=== PATIENT | female | born 1950 | race Caucasian/White ===

== ENCOUNTER → 2024-10-08 | Outpatient (CLI) | payer MEDICARE, BC, SELFPAY ==
[2024-10-08 09:01] LABS: Glucose Estimated Average 134 mg/dL (80-131); Hemoglobin A1C 6.3 % Hgb (4.8-6.0)
[2024-10-08 09:29] LABS: Alanine Aminotransferase 16 U/L (10-49); Albumin, Serum 4.4 gm/dL (3.4-4.8); Alkaline Phosphatase 81 U/L (46-116); Anion Gap 7 (7-16); Aspartate Amino Transferase 17 U/L (0-34); BUN/Creatinine Ratio 31 Ratio (12-20); Bilirubin,Total 0.5 mg/dL (0.3-1.2); Blood Urea Nitrogen 25 mg/dL (9-23); Calcium 10.3 mg/dL (8.3-10.6); Calcium (Corrected) 10.3 mg/dL (8.5-10.1); Carbon Dioxide 32.1 mMol/L (20.0-31.0); Chloride 104 mMol/L (98-107); Creatinine (Component) 0.8 mg/dL (0.6-1.3); Globulin 2.2 gm/dL (2.3-3.5); Glucose 121 mg/dL (74-106); Osmolality,Calculated 290 (275-295); Potassium 4.7 mMol/L (3.4-5.1); Sodium 143 mMol/L (136-145); Total Protein 6.6 gm/dL (5.7-8.2); eGFR > 60 See Note
== END | disposition home or self-care (01) ==
LOC: COPL 07:14
PROVIDERS: PCP Family Medicine; Referring Provider Family Medicine; Visit Provider Family Medicine
DX: E11.22 Type 2 diabetes mellitus with diabetic chronic kidney disease (principal); N18.1 Chronic kidney disease, stage 1
CPT/HCPCS: 36415; 80053; 83036

== ENCOUNTER → 2025-01-06 | Outpatient (CLI) | payer MEDICARE, BC, SELFPAY ==
--- NOTE | 2025-01-06 | XR_ITS ---
Examination: Abdomen AP single view Technique: AP portable supine abdomen, single view Exam date and time: January 06, 2025 1254 hours INDICATIONS: Abdominal distention today. FINDINGS: Moderate to large amounts of stool throughout the colon No obstruction No free air Prominent osteopenia. Moderate narrowing hip joints IMPRESSION: Moderate to large amounts of stool throughout the colon
--- NOTE | 2025-01-06 | XR_ITS ---
Examination: Abdomen sonogram, complete Date and time of exam: January 06, 2025 1207 hours INDICATIONS: Abdominal pain beginning one week ago, clinical diagnosis diverticulitis. Technique: Multiple real-time grayscale transabdominal sonographic images of the abdomen have been obtained. Findings: Normal gallbladder Normal common bile duct 0.3 cm Pancreatic head 2.1 cm Aorta not enlarged. Liver 17.3 cm fatty infiltration Normal hepatopedal portal venous flow Patent IVC Right kidney 8.9 cm cortex 1.4 cm Left kidney 10.2 cm cortex 1.5 cm 14 mm midpole left renal cyst Mild left renal and right renal parenchymal scar formation Spleen 7.8 cm IMPRESSION: Normal gallbladder Mild hepatomegaly fatty infiltration
[2025-01-06 14:23] LABS: Basophils # (Auto) 0.1 Thou/mm3 (0.0-0.2); Basophils % (Auto) 1 % (0-2.5); Eosinophils # (Auto) 0.3 Thou/mm3 (0.0-0.5); Eosinophils % (Auto) 3 % (0-10); Hematocrit 44.8 % (36.0-46.0); Hemoglobin 14.8 g/dL (12.0-16.0); Immature Granulocytes % (Auto) 0 % (0-0); Immature Granulocytes Auto 0.04 Thou/mm3 (0.00-0.00); Lymphocytes # (Auto) 2.7 Thou/mm3 (1.0-4.8); Lymphocytes % (Auto) 26 % (10-50); Mean Corpuscular Hemoglobin 30.5 pg (25.0-35.0); Mean Corpuscular Volume 92 fL (80-100); Monocytes # (Auto) 0.9 Thou/mm3 (0.0-0.8); Monocytes % (Auto) 9 % (0-12); Neutrophils # (Auto) 6.4 Thou/mm3 (1.8-7.7); Neutrophils % (Auto) 62 % (37-80); Nucleated Red Blood Cell % 0 /100 WBC (0); Platelet Count 252 Thou/mm3 (140-440); RDW Standard Deviation 44.1 fL (36.4-46.3); Red Blood Count 4.85 Miln/mm3 (4.00-5.20); White Blood Count 10.4 Thou/mm3 (3.6-11.0)
[2025-01-06 14:45] LABS: Alanine Aminotransferase 18 U/L (10-49); Albumin, Serum 4.8 gm/dL (3.4-4.8); Albumin/Globulin Ratio 1.9 (1.2-2.2); Alkaline Phosphatase 69 U/L (46-116); Anion Gap 9 (7-16); Aspartate Amino Transferase 21 U/L (0-34); BUN/Creatinine Ratio 28 Ratio (12-20); Bilirubin,Total 0.6 mg/dL (0.3-1.2); Blood Urea Nitrogen 25 mg/dL (9-23); Calcium 10.4 mg/dL (8.3-10.6); Calcium (Corrected) 10.4 mg/dL (8.5-10.1); Carbon Dioxide 29.8 mMol/L (20.0-31.0); Chloride 103 mMol/L (98-107); Creatinine (Component) 0.9 mg/dL (0.6-1.3); Globulin 2.5 gm/dL (2.3-3.5); Glucose 106 mg/dL (74-106); Osmolality,Calculated 287 (275-295); Potassium 4.4 mMol/L (3.4-5.1); Sodium 142 mMol/L (136-145); Total Protein 7.3 gm/dL (5.7-8.2); eGFR > 60 See Note
== END | disposition home or self-care (01) ==
PROVIDERS: PCP Family Medicine; Referring Provider Family Medicine; Visit Provider Family Medicine
DX: K59.00 Constipation, unspecified (principal); K76.0 Fatty (change of) liver, not elsewhere classified; R10.33 Periumbilical pain; R14.0 Abdominal distension (gaseous)
CPT/HCPCS: 36415; 74018; 76700; 80053; 85025

== ENCOUNTER → 2025-01-14 | Outpatient (CLI) | payer MEDICARE, BC, SELFPAY ==
--- NOTE | 2025-01-14 13:15 | XR_ITS ---
Examination: Screening digital mammography, bilateral Computer aided detection 3-D breast Tomosynthesis, bilateral Date and time of exam: January 14, 2025 1303 hours Compared to mammograms dating to March 25, 2023 Indication: Screening Technique: Nonmagnified MLO, CC views of the breasts to been obtained, reconstructed from 3-D Tomosynthesis images. R2 computer aided detection program utilized for evaluation of suspicious masses and/or abnormal calcifications. 3-D Tomosynthesis images obtained. Findings: Scattered areas of fibroglandular density Stable focal asymmetric glandular tissue outer right breast No interval suspicious masses Impression: BI-RADS category II: Benign Findings. Recommend 1 year follow-up mammogram.
== END | disposition home or self-care (01) ==
LOC: CDIM 12:55
PROVIDERS: Referring Provider Family Medicine; Visit Provider Family Medicine
DX: Z12.31 Encounter for screening mammogram for malignant neoplasm of breast (principal); R92.323 Mammographic fibroglandular density, bilateral breasts
CPT/HCPCS: 77063; 77067

== ENCOUNTER → 2025-02-08 | Outpatient (CLI) | payer MEDICARE, BC, SELFPAY ==
[2025-02-08 14:54] LABS: Collection Type, Urine Clean Catch
[2025-02-08 16:52] LABS: Bacteria,Urine Rare; Bilirubin,Urine Negative (Negative); Blood,Urine Negative (Negative); Color,Urine Lt-Yellow (Lt Yel-Yel); Glucose, Urine Negative (Negative); Ketones,Urine Negative (Negative); Leukocyte Esterase,Urine Positive (Negative); Nitrite,Urine Positive (Negative); Protein,Urine Negative (Neg - Trace); RBC,Urine 8 /hpf (0-3); Squamous Epithelial Cell,Urine < 1 /hpf (0-5); Urobilinogen,Urine Negative mg/dL (0.0-1.0); WBC,Urine 65 /hpf (0-5)
[2025-02-08 17:07] LABS: Clarity,Urine Hazy (Clear/Hazy)
== END | disposition home or self-care (01) ==
LOC: SLDO 14:37
PROVIDERS: Referring Provider Registered Nurse; Visit Provider Registered Nurse
DX: N39.0 Urinary tract infection, site not specified (principal)
CPT/HCPCS: 81001; 87077; 87086; 87186

== ENCOUNTER → 2025-03-21 | Outpatient (CLI) | payer MEDICARE, BC, SELFPAY ==
[2025-03-21 14:34] LABS: Collection Type, Urine Clean Catch
[2025-03-21 16:11] LABS: Bacteria,Urine Rare; Bilirubin,Urine Negative (Negative); Blood,Urine 2+ (Negative); Calcium Oxalate Crystals,Urine 2+; Clarity,Urine Turbid (Clear/Hazy); Color,Urine Yellow (Lt Yel-Yel); Glucose, Urine Trace (Negative); Ketones,Urine Negative (Negative); Leukocyte Esterase,Urine Positive (Negative); Nitrite,Urine Positive (Negative); PH,Urine 6.0 (5.0-7.0); Protein,Urine Trace (Neg - Trace); RBC,Urine 17 /hpf (0-3); Specific Gravity,Urine 1.030 (1.001-1.035); Squamous Epithelial Cell,Urine 1 /hpf (0-5); Transitional Epi Cells,Urine 1 /hpf (0-5); Urobilinogen,Urine Negative mg/dL (0.0-1.0); WBC,Urine 247 /hpf (0-5)
== END | disposition home or self-care (01) ==
LOC: SLDO 14:30
PROVIDERS: PCP Family Medicine; Referring Provider Registered Nurse; Visit Provider Registered Nurse
DX: N39.0 Urinary tract infection, site not specified (principal)
CPT/HCPCS: 81001; 87077; 87086; 87186

== ENCOUNTER 2025-03-28 06:33 | Day surgery (SDC) | payer MEDICARE, BC, SELFPAY ==
--- NOTE | 2025-03-25 09:31 | EKG_ITS ---
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
[2025-03-25 12:01] LABS: Basophils # (Auto) 0.1 Thou/mm3 (0.0-0.2); Basophils % (Auto) 1 % (0-2.5); Eosinophils # (Auto) 0.1 Thou/mm3 (0.0-0.5); Eosinophils % (Auto) 1 % (0-10); Hematocrit 45.6 % (36.0-46.0); Hemoglobin 14.5 g/dL (12.0-16.0); Immature Granulocytes Auto 0.04 Thou/mm3 (0.00-0.00); Lymphocytes # (Auto) 2.3 Thou/mm3 (1.0-4.8); Lymphocytes % (Auto) 24 % (10-50); Mean Corpuscular HGB Conc 31.8 g/dl (31.0-37.0); Mean Corpuscular Hemoglobin 30.6 pg (25.0-35.0); Mean Corpuscular Volume 96 fL (80-100); Monocytes # (Auto) 0.9 Thou/mm3 (0.0-0.8); Monocytes % (Auto) 10 % (0-12); Neutrophils # (Auto) 6.2 Thou/mm3 (1.8-7.7); Neutrophils % (Auto) 64 % (37-80); Nucleated Red Blood Cell # 0.00 Thou/mm3 (0.00-0.00); Nucleated Red Blood Cell % 0 /100 WBC (0); Platelet Count 249 Thou/mm3 (140-440); RDW Standard Deviation 46.6 fL (36.4-46.3); Red Blood Count 4.74 Miln/mm3 (4.00-5.20); White Blood Count 9.7 Thou/mm3 (3.6-11.0)
[2025-03-25 12:31] LABS: Anion Gap 14 (7-16); BUN/Creatinine Ratio 21 Ratio (12-20); Blood Urea Nitrogen 21 mg/dL (9-23); Calcium 10.3 mg/dL (8.3-10.6); Carbon Dioxide 27.3 mMol/L (20.0-31.0); Chloride 103 mMol/L (98-107); Creatinine (Component) 1.0 mg/dL (0.6-1.3); Glucose 154 mg/dL (74-106); Osmolality,Calculated 292 (275-295); Potassium 5.0 mMol/L (3.4-5.1); Sodium 144 mMol/L (136-145); eGFR 58 See Note
[2025-03-25 12:58] LABS: INR 1.0 (0.9-1.3); Partial Thromboplastin Time 24.5 Seconds (22.0-36.0); Prothrombin Time 11.3 Seconds (9.0-12.2)
[2025-03-28] VITALS (10 sets, daily range): BP systolic 100–153; BP diastolic 58–89; PULSE 56–87; RESP 16–21; TEMP 36.2–36.3; O2SAT 93–98; BMI 27.3
--- NOTE | 2025-03-28 09:29 | ESOP_ITS ---
RE: ADY HOLDER : 1950 DATE OF OPERATION: 03/28/2025 DATE OF PROCEDURE: 03/28/2025 PROCEDURES PERFORMED: 1. Diagnostic left heart cardiac catheterization, selective coronary angiogram, and left ventricular angiogram, CPT 85085. 2. Conscious sedation for 30-minute duration. 3. Ultrasound-guided access, right radial artery. DIAGNOSES: Abnormal stress test, coronary artery disease, angina pectoris. HISTORY AND INDICATIONS: The patient is a 75-year-old lady with a history of hypertension who has been having recurrent shortness of breath with chest pressure. Cardiac stress test was inconclusive with suspicion for left main disease because of balanced ischemia. Coronary angiography was recommended to assess if the patient has significant obstructive CAD as the cause of her symptoms. DESCRIPTION OF PROCEDURE: The patient was brought to the cardiac catheterization laboratory where she was given 2 mg Versed and 100 mcg of fentanyl for conscious sedation. The right radial artery approach was taken. Right radial artery was cannulated by micropuncture technique. A 6-[place] Glidesheath was introduced. Selective left coronary angiogram was performed by TIG-4 diagnostic catheter. Left heart catheterization and LV angiogram were performed by the same catheter. The right coronary artery had a low origin, difficult to cannulate. An FR4 diagnostic catheter was used to perform the right coronary angiogram successfully. A TR band was applied. Hemostasis was secured. Radial cocktail was given after the sheath was introduced. The coronary angiogram showed the following findings: The right coronary artery is a large and dominant, showed no significant stenosis. The PDA and PL branches are normal. Left coronary system: The left main coronary artery is normal. The left anterior descending artery is normal. The circumflex artery is normal and nondominant. Left ventricular pressure is 115/10 mmHg. Aortic pressure is 115/80 mmHg. No gradient across the aortic valve. The left ventricular angiogram showed normal left ventricular wall motion with an ejection fraction 60%. SUMMARY OF FINDINGS AND SUGGESTIONS: 1. Normal left ventricular function. 2. Nonobstructive epicardial coronary arteries. RECOMMENDATIONS: The patient was reassured by the absence of significant obstructive coronary artery disease. PROGNOSIS: Excellent. DT: 08:43:05 TT: 09:23:00 Ref: [id number] - TID: [id number] [facility]
== END 2025-03-28 11:40 | disposition home or self-care (01) ==
PROVIDERS: PCP Family Medicine; Referring Provider Internal Medicine Cardiovascular Disease; Visit Provider Internal Medicine Cardiovascular Disease
PROC: (CPT 93458; principal; 2025-03-28 07:30)
DX: I25.119 Atherosclerotic heart disease of native coronary artery with unspecified angina pectoris (principal); I10 Essential (primary) hypertension; Z01.810 Encounter for preprocedural cardiovascular examination
CPT/HCPCS: 93458; 36415; 80048; 85025; 85610; 85730; 87493; 93005; 99152; 99153; A4649; C1769; C1887; C1894; J0168; J0461; J1643; J2250; J2310; J2371; J3010; J3490; Q9967; C1725; J2305

== ENCOUNTER → 2025-03-31 | Outpatient (CLI) | payer MEDICARE, BC, SELFPAY ==
[2025-03-31 15:15] LABS: Collection Type, Urine Clean Catch
[2025-03-31 16:32] LABS: Bacteria,Urine Rare; Bilirubin,Urine Negative (Negative); Blood,Urine 2+ (Negative); Clarity,Urine Clear (Clear/Hazy); Color,Urine Lt-Yellow (Lt Yel-Yel); Glucose, Urine Negative (Negative); Ketones,Urine Negative (Negative); Leukocyte Esterase,Urine Positive (Negative); Nitrite,Urine Negative (Negative); PH,Urine 6.0 (5.0-7.0); Protein,Urine Negative (Neg - Trace); RBC,Urine 116 /hpf (0-3); Specific Gravity,Urine 1.016 (1.001-1.035); Squamous Epithelial Cell,Urine 2 /hpf (0-5); Urobilinogen,Urine Negative mg/dL (0.0-1.0); WBC,Urine 5 /hpf (0-5)
== END | disposition home or self-care (01) ==
LOC: SLDO 14:44
PROVIDERS: PCP Registered Nurse; Referring Provider Registered Nurse; Visit Provider Registered Nurse
DX: N39.0 Urinary tract infection, site not specified (principal)
CPT/HCPCS: 81001; 87086

== ENCOUNTER → 2025-06-06 | Outpatient (CLI) | payer MEDICARE, BC, SELFPAY ==
--- NOTE | 2025-06-06 15:11 | XR_ITS ---
Examination:Right hip AP, lateral, AP pelvis 3 views Technique: Hip AP lateral, AP pelvis, 3 views Exam date and time:June 06, 2025, 1514 hours INDICATIONS: Right back pain radiating to right hip 11 days FINDINGS: Significant osteopenia No right hip fracture or dislocation Moderate narrowing hip joints Left hip bones of the pelvis intact IMPRESSION: Moderate narrowing hip joints.
--- NOTE | 2025-06-06 15:11 | XR_ITS ---
Examination: Lumbar spine, 5 views Technique: Lumbar spine AP, lateral, coned lateral lower lumbar spine, bilateral obliques 5 views Exam date and time: June 06, 2025, 1526 hours, comparison June 24, 2022 INDICATIONS: Low back pain radiating to the right hip beginning 11 days ago. FINDINGS: Severe osteopenia Lumbar dextroscoliosis 17 degrees Advanced diffuse facet arthropathy Grade 1 anterolisthesis L4 on L5 Diffuse moderate to advanced lumbar degenerative disc disease, most severe L2-L3, L5-S1 No lumbar fracture Prominent lumbar spondylosis IMPRESSION: Diffuse moderate to advanced lumbar degenerative disc disease with significant spinal stenosis
== END | disposition home or self-care (01) ==
LOC: CDIM 15:05
PROVIDERS: Referring Provider Family Medicine; Visit Provider Family Medicine
DX: M25.851 Other specified joint disorders, right hip (principal); M51.360 Other intervertebral disc degeneration, lumbar region with discogenic back pain only; M48.061 Spinal stenosis, lumbar region without neurogenic claudication
CPT/HCPCS: 72110; 73502

== ENCOUNTER → 2025-06-08 | Outpatient (CLI) | payer MEDICARE, BC, SELFPAY ==
--- NOTE | 2025-06-08 11:30 | XR_ITS ---
Examination: Abdomen sonogram, Limited Date and time of exam: June 08, 2025 1129 hours INDICATIONS: Epigastric pain 3 years Technique: Real-time gustafson scale transabdominal sonographic images of the upper abdomen obtained. Findings: Normal gallbladder. Normal common bile duct 0.5 cm Pancreatic head 1.4 cm Liver 16.8 cm fatty infiltration no focal liver lesions Normal hepatopedal portal venous flow Patent IVC IMPRESSION: Normal gallbladder Normal common bile duct. Mild hepatomegaly fatty infiltration no focal liver lesions
== END | disposition home or self-care (01) ==
LOC: CDIM 11:07
PROVIDERS: PCP Family Medicine; Referring Provider Specialist; Visit Provider Specialist
DX: K76.0 Fatty (change of) liver, not elsewhere classified (principal)
CPT/HCPCS: 76705

== ENCOUNTER → 2025-06-16 | Outpatient (CLI) | payer MEDICARE, BC, SELFPAY ==
--- NOTE | 2025-06-16 07:00 | XR_ITS ---
Examination: MRI lumbar spine without contrast Date and time of exam: June 16, 2025, 1903 hours INDICATIONS: Lower back pain radiating down the right leg 6 months Technique: Multiple MRI axial and sagittal sections lumbar spine. Sagittal T2-weighted images, TR 3500, TE 118 T1 weighted transverse sections, TR 688 T8.5, T2-weighted sagittal sections T1 weighted sagittal sections TR 621, TE 30 T2 axial sections, TR 4, 190, TE 84. Findings: Grade 1 anterolisthesis L4 on L5 Advanced disc narrowing L1-2, L2-L3, L5-S1 Diffuse lumbar disc desiccation L5-S1 5 mm central lumbar disc bulge contiguous with the right and left S1 nerve roots L4-L5 moderate overall spinal stenosis secondary to the anterolisthesis, 6 mm central lumbar disc bulge, facet arthropathy, the disc bulge extending to the foraminal regions with mild bilateral L4 ganglionic compression L3-L4 4 mm central lumbar disc bulge 6 mm left foraminal disc bulge with mild left L3 ganglionic impression L2-L3 foraminal disc bulges no ganglionic impression L1-L2 4 mm left paracentral disc protrusion IMPRESSION: Advanced degenerative disc disease L1-L2, L2-L3, L5-S1 L5-S1 5 mm central lumbar disc bulge displacing the right and left S1 nerve roots L4-L5 moderate overall spinal stenosis, including mild bilateral L4 ganglionic impression L3-L4 4 mm central lumbar disc bulge 6 mm left foraminal disc bulge with mild left L3 ganglionic compression L1-L2 4 mm left paracentral disc bulge
== END | disposition home or self-care (01) ==
LOC: SMRI 06:35
PROVIDERS: Referring Provider Physician Assistant; Visit Provider Physician Assistant
DX: M51.360 Other intervertebral disc degeneration, lumbar region with discogenic back pain only (principal); G95.20 Unspecified cord compression
CPT/HCPCS: 72148

== ENCOUNTER 2025-06-29 08:20 | Day surgery (SDC) | payer MEDICARE, BC, SELFPAY ==
[2025-06-29] VITALS (8 sets, daily range): BP systolic 139–174; BP diastolic 72–88; PULSE 75–90; RESP 14–18; TEMP 36.7–36.8; O2SAT 14–98; BMI 27.1
[2025-06-29] MEDS: SODIUM CHLORIDE 0.9% 500 ML 500 ML 20 ML IV (10:02)
[2025-06-29] MEDS: BENZOCAINE 20% (Hurricaine) SPRAY 1 DOSE TOP (10:02)
[2025-06-29] MEDS: MIDAZOLAM INJ 1 MG/ML VIAL 2 ML 2 MG IVP (10:05)
[2025-06-29] MEDS: fentaNYL CIT INJ 50 mCg/ML AMP 2ML IVP (10:05)
== END 2025-06-29 11:00 | disposition home or self-care (01) ==
PROVIDERS: PCP Family Medicine; Referring Provider Specialist; Visit Provider Specialist
PROC: (CPT 43239; principal; 2025-06-29 11:15)
DX: K29.50 Unspecified chronic gastritis without bleeding (principal); K20.90 Esophagitis, unspecified without bleeding; E11.9 Type 2 diabetes mellitus without complications; E78.5 Hyperlipidemia, unspecified; Z79.84 Long term (current) use of oral hypoglycemic drugs; Z79.899 Other long term (current) drug therapy
CPT/HCPCS: 43239; A4649; J1200; J2250; J3010; J7999; A9270

== ENCOUNTER → 2025-07-27 | Outpatient (CLI) | payer MEDICARE, BC, SELFPAY ==
--- NOTE | 2025-07-27 09:31 | XR_ITS ---
Examination: Lumbar spine, 5 views Technique: Lumbar spine AP, lateral, coned lateral lower lumbar spine, bilateral obliques 5 views Exam date and time: July 27 2025, 1006 hours, comparison 06/06/2025 INDICATION: Lower back pain beginning 2 months ago FINDINGS: Severe osteopenia Lumbar dextroscoliosis 17 degrees Moderate narrowing hip joints Grade 2 anterolisthesis L4 on L5 Diffuse advanced lumbar degenerative disc disease Prominent lumbar spondylosis IMPRESSION: Diffuse advanced lumbar degenerative disc disease with spinal stenosis
== END | disposition home or self-care (01) ==
LOC: CDIM 09:07
PROVIDERS: PCP Family Medicine; Referring Provider Specialist; Visit Provider Specialist
DX: M51.360 Other intervertebral disc degeneration, lumbar region with discogenic back pain only (principal); M48.061 Spinal stenosis, lumbar region without neurogenic claudication
CPT/HCPCS: 72110